=== PATIENT | male | born 1985 | race Hispanic/Latino ===

== ENCOUNTER 2019-05-20 14:22 | Emergency (ER) | payer SELFPAY ==
[~2019-05-20] VITALS: Ht 160 cm; Wt 60.0 kg
[2019-05-20 15:40] VITALS: BP 127/85
== END 2019-05-20 15:40 | disposition home or self-care (01) | DRG 159 ==
LOC: ED 14:22
PROC: 0CQ0XZZ Repair Upper Lip, External Approach (ICD-10-PCS; principal; 2019-05-20)
DX: S01.511A Laceration without foreign body of lip, initial encounter (principal); W22.8XXA Striking against or struck by other objects, initial encounter; Y93.89 Activity, other specified; Y92.89 Other specified places as the place of occurrence of the external cause; Y99.0 Civilian activity done for income or pay

== ENCOUNTER 2019-05-30 16:16 | Emergency (ER) | payer SELFPAY ==
[~2019-05-30] VITALS: Ht 160 cm; Wt 60.0 kg
[2019-05-30 17:10] VITALS: BP 119/72
== END 2019-05-30 17:10 | disposition home or self-care (01) | DRG 950 ==
LOC: ED 16:16
DX: S01.511D Laceration without foreign body of lip, subsequent encounter (principal); X58.XXXD Exposure to other specified factors, subsequent encounter